=== PATIENT | male | born 1985 | race Caucasian/White ===

== ENCOUNTER 2019-03-31 09:44 | Emergency (ER) | payer SELFPAY ==
[2019-03-31] MEDS ORDERED: NORMAL SALINE 1000 ML 1,000 ML IV ONE (09:49)
[2019-03-31] MEDS ORDERED: DIAZEPAM INJ 10 MG/2 ML DISP.SYRIN IV ONE (10:01)
[2019-03-31] MEDS ORDERED: DIPHENHYDRAMINE HCL 50 MG/ML VIAL IV ONE (10:01)
[2019-03-31] MEDS ORDERED: HALOPERIDOL LACTATE INJ 5 MG/1 ML VIAL IM ONE (10:01)
--- NOTE | 2019-03-31 10:02 | ER Document Report ---
ED General - General Chief Complaint: Drug Abuse Stated Complaint: POSSIBLE OVERDOSE Time Seen by Provider: 03/31/19 09:48 Primary Care Provider: KELI TURNER [Primary Care Provider] - Follow up as needed Mode of Arrival: Stretcher Information source: Patient, Law Enforcement, Emergency Med Personnel Notes: 34-year-old male with anxiety, EMS after he was found running in the street erratically. Patient states that he ran to the police department for help because "they are all trying to kill me". Patient states that he did use IV meth that was "laced". He states 2 of his friends are trying to poison him. Patient admits to auditory hallucinations that tell him that someone is trying to kill him. Reports using Zoloft for his anxiety but has not had his medic ation for some time. Denies daily meth use. TRAVEL OUTSIDE OF THE [place] IN LAST 30 DAYS: No - HPI Onset: Just prior to arrival Onset/Duration: Sudden Quality of pain: No pain Severity: None Pain Level: Denies Associated symptoms: denies: Chest pain, Nonproductive cough, Productive cough, Fever, Leg swelling, Nausea, Vomiting, Shortness of breath Exacerbated by: Denies Relieved by: Denies Similar symptoms previously: No Recently seen / treated by doctor: No Past Medical History - General Information source: Patient - Social History Smoking Status: Current Every Day Smoker Cigarette use (# per day): Yes - 10 Smoking Education Provided: Yes - Smoking cessation counseling was provided for 4 minutes at the bedside Frequency of alcohol use: Occasional Drug Abuse: Methamphetamine, Prescription drugs Lives with: Alone Family History: Reviewed & Not Pertinent Patient has suicidal ideation: No Patient has homicidal ideation: No Renal/ Medical History: Denies: Hx Peritoneal Dialysis Psychiatric Medical History: Reports: Hx Anxiety, Hx Attention Deficit Hyperactivity Disorder Review of Systems - Review of Systems Notes: REVIEW OF SYSTEMS: CONSTITUTIONAL : Denies fever, chills, or sweats. Denies recent illness. Denies weight loss, recent hospitalizations. EENT: Denies visual changes, eye pain. Denies sore throat, oral lesions, difficulty swallowing. CARDIOVASCULAR: Denies chest pain. Denies palpitations. Denies lower extremity edema. RESPIRATORY: Denies cough. Denies shortness of breath, wheezing. GASTROINTESTINAL: Denies abdominal pain or distention. Denies nausea, vomiting, or diarrhea. Denies blood in vomitus, stools, or per rectum. Denies black, tarry stools. Denies constipation. GENITOURINARY: Denies difficulty urinating, painful urination, frequency, blood in urine, testicular pain or penile discharge. MUSCULOSKELETAL: Denies back or neck pain or stiffness. Denies joint pain or swelling. SKIN: Denies rash, lesions or sores. HEMATOLOGIC : Denies easy bruising or bleeding. LYMPHATIC: Denies swollen glands. NEUROLOGICAL: Denies confusion or altered mental status. Denies loss of consciousness. Denies dizziness or lightheadedness. Denies headache. Denies weakness or paralysis. Denies problems difficulty with ambulation, slurred speech. Denies sensory loss, numbness, or tingling. Denies seizures. PSYCHIATRIC: Auditory hallucinations. Denies suicidal ideation Physical Exam - Vital signs Vitals: Resp Pulse Ox 25 H 98 03/31/19 12:15 03/31/19 12:15 - Notes Notes: PHYSICAL EXAMINATION: GENERAL: Anxious, agitated, does not sit still HEAD: Atraumatic, normocephalic. EYES: Pupils equal round and reactive to light, extraocular movements intact, sclera anicteric, conjunctiva are normal. ENT: Nares patent, oropharynx clear without exudates. Moist mucous membranes. NECK: Normal range of motion, supple without lymphadenopathy LUNGS: Breath sounds clear to auscultation bilaterally and equal. No wheezes rales or rhonchi. HEART: Tachycardic, regular rhythm ABDOMEN: Soft, nontender, nondistended abdomen. No guarding, no rebound. No masses appreciated. Musculoskeletal: Normal range of motion, no pitting or edema. No cyanosis. NEUROLOGICAL: Cranial nerves grossly intact. Normal speech, normal gait. Normal sensory, motor exams PSYCH: Pressured speech, admits to auditory hallucinations. Paranoid thoughts. SKIN: Warm, Dry, normal turgor, no rashes or lesions noted. Course - Re-evaluation Re-evalutation: 03/31/19 12:26 Laboratory 03/31/19 03/31/19 10:04 10:04 WBC 16.1 H RBC 4.54 Hgb 13.9 Hct 40.7 MCV 90 MCH 30.6 MCHC 34.2 RDW 12.2 Plt Count 180 Seg Neutrophils % 87.5 H Lymphocytes % 7.7 L Monocytes % 4.5 Eosinophils % 0.0 Basophils % 0.3 Absolute Neutrophils 14.1 H Absolute Lymphocytes 1.2 Absolute Monocytes 0.7 Absolute Eosinophils 0.0 Absolute Basophils 0.0 Sodium 144.1 Potassium 4.2 Chloride 112 H Carbon Dioxide 24 Anion Gap 8 BUN 28 H Creatinine 1.31 H Est GFR ( Amer) > 60 Est GFR (Non-Af Amer) > 60 Glucose 86 Calcium 9.4 Total Bilirubin 1.4 H Direct Bilirubin 0.3 Neonat Total Bilirubin Not Reportable Neonat Direct Bilirubin Not Reportable Neonat Indirect Bili Not Reportable AST 84 H ALT 69 Alkaline Phosphatase 71 Creatine Kinase 1147 H Total Protein 7.2 Albumin 4.4 Salicylates < 1.0 L Acetaminophen < 10 L Serum Alcohol < 10 34-year-old male presents via EMS altered, agitated after injecting meth this morning. Patient is paranoid and states that "they are all out to kill me. 03/31/19 13:39 Patient required sedation due to extreme agitation, elopement risk. [facility] presented to the bedside after the patient's arrival and states that the patient's mother is on her way. They state that the patient expressed thoughts of harming himself. Patient does have custody of his young daughter who is at home at this time. He currently lives with his brother. IVC petition initiated. Behavioral health aware of the patient's presenting symptoms. Patient will be evaluated in the morning by the he is alert, awake. - Vital Signs Vital signs: Temp Pulse Resp BP Pulse Ox 23 H 98 03/31/19 13:00 03/31/19 13:00 - Laboratory Result Diagrams: 03/31/19 10:04 03/31/19 10:04 Laboratory results interpreted by me: 03/31/19 03/31/19 10:04 10:04 WBC 16.1 H Seg Neutrophils % 87.5 H Lymphocytes % 7.7 L Absolute Neutrophils 14.1 H Chloride 112 H BUN 28 H Creatinine 1.31 H Total Bilirubin 1.4 H AST 84 H Creatine Kinase 1147 H Salicylates < 1.0 L Acetaminophen < 10 L - EKG Interpretation by De EKG shows normal: Sinus rhythm Rate: Normal Rhythm: NSR Discharge - Discharge Clinical Impression: Methamphetamine use, Agitation, Paranoid and/or hallucinatory states induced by drugs Condition: Good Disposition: OTHER Referrals: LOCALMD,NO [Primary Care Provider] - Follow up as needed
[2019-03-31 10:29] LABS: ABSOLUTE LYMPHOCYTES (AUTO) 1.2 10^3/uL (0.5-4.7); ABSOLUTE MONOCYTES (AUTO) 0.7 10^3/uL (0.1-1.4); ABSOLUTE NEUT (AUTO) 14.1 10^3/uL (1.7-8.2); BASOPHILS % (AUTO) 0.3 % (0-2); HEMATOCRIT 40.7 % (37.9-51.0); HEMOGLOBIN 13.9 g/dL (13.5-17.0); LYMPHOCYTES % (AUTO) 7.7 % (13-45); MEAN CORPUSCULAR HEMOGLOBIN 30.6 pg (27.0-33.4); MEAN CORPUSCULAR HGB CONC 34.2 g/dL (32.0-36.0); MEAN CORPUSCULAR VOLUME 90 fl (80-97); MONOCYTES % (AUTO) 4.5 % (3-13); PLATELET COUNT 180 10^3/uL (150-450); RED BLOOD COUNT 4.54 10^6/uL (4.35-5.55); RED CELL DISTRIBUTION WIDTH 12.2 % (11.5-14.0); SEGMENTED NEUTROPHILS % (AUTO) 87.5 % (42-78); TOTAL CELLS COUNTED % (AUTO) 100 %; WHITE BLOOD COUNT 16.1 10^3/uL (4.0-10.5)
[2019-03-31 10:47] LABS: ALANINE AMINOTRANSFERASE 69 U/L (21-72); ALBUMIN 4.4 g/dL (3.5-5.0); ALKALINE PHOSPHATASE 71 U/L (38-126); ANION GAP 8 (5-19); ASPARTATE AMINO TRANSFERASE 84 U/L (17-59); BILIRUBIN,DIRECT 0.3 mg/dL (0.0-0.4); BILIRUBIN,TOTAL 1.4 mg/dL (0.2-1.3); BLOOD UREA NITROGEN 28 mg/dL (7-20); CALCIUM 9.4 mg/dL (8.4-10.2); CARBON DIOXIDE 24 mmol/L (22-30); CHLORIDE 112 mmol/L (98-107); CREATINE KINASE 1147 U/L (55-170); GLUCOSE 86 mg/dL (75-110); POTASSIUM 4.2 mmol/L (3.6-5.0); SODIUM 144.1 mmol/L (137-145); TOTAL PROTEIN 7.2 g/dL (6.3-8.2)
[2019-03-31 10:57] LABS: ACETAMINOPHEN < 10 ug/mL (10-30); ALCOHOL < 10 mg/dL (NONE DETECTED); SALICYLATE < 1.0 mg/dL (2.0-20.0)
--- NOTE | 2019-03-31 12:41 | EKG REPORT ---
SEVERITY:- NORMAL ECG - SINUS RHYTHM : Confirmed by: Allegra Lr 31-Mar-2019 12:41:00
[2019-03-31] MEDS ORDERED: LORAZEPAM 1 MG TABLET PO PRN (14:52)
[2019-03-31 17:02] LABS: AMORPHOUS SEDIMENT,URINE TRACE /HPF; APPEARANCE,URINE CLOUDY; BILIRUBIN,URINE NEGATIVE (NEGATIVE); COLOR,URINE AMBER; GLUCOSE, URINE NEGATIVE (NEGATIVE); KETONES,URINE 20 mg/dL (NEGATIVE); LEUKOCYTE ESTERASE,URINE NEGATIVE (NEGATIVE); NITRITE,URINE NEGATIVE (NEGATIVE); PROTEIN,URINE NEGATIVE (NEGATIVE); UROBILINOGEN,URINE NEGATIVE mg/dL (<2.0)
[2019-03-31 17:11] LABS: URINE BARBITURATES SCREEN NEGATIVE; URINE BENZODIAZEPINES SCREEN UNCONFIRMED POSITIVE; URINE COCAINE SCREEN NEGATIVE; URINE MARIJUANA (THC) SCREEN NEGATIVE; URINE METHADONE SCREEN NEGATIVE; URINE PHENCYCLIDINE SCREEN NEGATIVE
[2019-03-31] MEDS ORDERED: NICOTINE 21 MG/24 HR PATCH.TD24 TD ONE (18:05)
--- NOTE | 2019-03-31 21:43 | PSYCHOLOGICAL NOTE ---
Psych Note - Psych Note Date seen by psych provider: 03/31/19 Psych Note: Reason for Consult: AMS 34-year-old male with anxiety, EMS after he was found running in the street erratically. Patient states that he ran to the police department for help because "they are all trying to kill me". Patient states that he did use IV meth that was "laced". Patient is standing in door to his room attempting to explain "his side of the story." He is unable to engage in organized and linear conversation and is clearly demonstrating behaviors indicating he is under the influence. Patient repeats words, mumbles, losses track of what he is attempting to talk about, and has difficultly with psychomotor agitation. Patient was able to be redirected to his room and to lay down on the bed. Unfortunately, the patient was unable remain in his room and remain calm on his own; he needed medication to assist to maintain his and staff safety. Patient was placed on IVC petition for overnight mental health observation. He will be re-evaluated once he is no longer under the influence. Dr. Mcginnis was consulted on the care and management of this patient; attending physician is in agreement with recommendations and disposition.
--- NOTE | 2019-04-01 10:06 | ER Document Report ---
Doctor's Note Notes: 04/01/19 10:04 Rounds: Chart reviewed and patient interviewed. Patient says he is feeling better. He says that he thinks someone "laced" his methamphetamine that he gave himself IV. Not sure what it was "laced" with. History of anxiety. Vital signs are all normal this morning. Patient is awake and alert and cooperative. Family at the bedside. Lab studies show a slightly elevated WBC of 16,100 without specific signs of any infection. Creatinine is 1.8. Total CPK is 1197. Patient's drug screen was positive for amphetamines and benzos. Patient had an IV and but he took it out. I have the nurse give the patient another IV and 2 bags of saline to flush some of the creatinine phosphokinase out. Patient appe ars to be medically stable for transfer or discharge after these 2 bags of IV fluids are given. Mitchell Tafoya MD
[2019-04-01] MEDS: NORMAL SALINE 1000 ML 1,000 ML IV PRN ×2 (10:20→11:47)
[2019-04-01] MEDS ORDERED: VENLAFAXINE HCL 37.5 MG CAP.SR.24H PO ONE (10:23)
--- NOTE | 2019-04-01 11:21 | PSYCHOLOGICAL NOTE ---
Psych Note - Psych Note Date seen by psych provider: 04/01/19 Psych Note: Diagnosis: Meth Induced Psychosis Meth Use Disorder, Severe Medication recommendations made by the psychiatric medical provider, Dr. Michael MD., includes: Add Effexor 37.5MG twice a day for depression/Focus/Energy/To curb cravings Impression/Plan: Patient is cleared from acute psychiatric services. Recommendation to rescind 24 Hour IVC Petition. He denied SI/HI and no observed psychosis. He has had tome to come down from methamphetamine high. His thought are more linear. He reported he wants help. provided patient and mother the outpatient SA resource sheet which highlighted [facility] for assistance with voluntary SA treatment linkage, listed the 4 state funded detox facilities and documented [facility] via [facility] for adjunct faculty for medical terminology recovery care. Also provided the outpatient MH resource sheet which highlighted both [facility] and [facility] for SAIOP. Both parents at bedside and involved in plan of care. Consulted with Dr. Mcginnis regarding the management and care of patient. ED Physician in agreement with recommendations.
[2019-04-01 12:54] VITALS: BP 110/68
== END 2019-04-01 13:14 | disposition home or self-care (01) ==
LOC: ER 09:44
DX: F19.10 Other psychoactive substance abuse, uncomplicated (principal); R45.1 Restlessness and agitation; F23 Brief psychotic disorder; F41.9 Anxiety disorder, unspecified; R00.0 Tachycardia, unspecified; Z79.899 Other long term (current) drug therapy; F17.210 Nicotine dependence, cigarettes, uncomplicated
CPT/HCPCS: 93005; 99406; 99285; 96372; 96361; 96374; 96375; 36415; 80307 ×4; 82550; 85025; 80053; 81001; 93010; J3360; J1200; J3490; J1630; J7030 ×2